=== PATIENT | male | born 1965 | race American Indian/Alaskan Native ===

== ENCOUNTER 2021-04-25 06:27 | Emergency (ER) | payer SELFPAY ==
[2021-04-25 07:31] LABS: CORONAVIRUS COVID-19 NAA NEGATIVE (NEGATIVE)
[2021-04-25 07:33] LABS: ANION GAP 10.5 mEq/L (7-13); CHLORIDE,CL 101 mmol/L (98-107); SODIUM,NA 139 mmol/L (136-145)
--- NOTE | 2021-04-25 07:53 | EDM.PDOC ---
ED HPI GENERAL MEDICAL PROBLEM - General Chief Complaint: Respiratory Problem Stated Complaint: TROUBLE BREATHING Time Seen by Provider: 04/25/21 07:52 Source of Information: Reports: Patient, RN, RN Notes Reviewed History Limitations: Reports: No Limitations - History of Present Illness INITIAL COMMENTS - FREE TEXT/NARRATIVE: Maikel is a 55 y/o male who presents to the ED via personal vehicle with complaints of shortness of breath with exertion. The patient states his symptoms began about three weeks ago and has maintained in severity over this time. He notes his shortness of breath is alleviated by laying down. Additionally, he notes transient chills and weakness. He denies recent illness, fever, vision changes, dizziness, chest pain/pressure, palpitations, dyspepsia, abdominal pain, nausea, or vomiting. The patient reports he is a usual one pack per day cigarette smoker, however he has only been able to smoke 1/4 pack a day for the past few days; he denies alcohol and recreational drug use. He has taken no medications for his symptoms. Bilateral Knee Pain Score (Numeric/FACES): 9 Social & Family History - Tobacco Use Tobacco Use Status *Q: Current Every Day Tobacco User Years of Tobacco use: 40 Packs/Tins Daily: 1 - Caffeine Use Caffeine Use: Reports: Coffee - Alcohol Use Date of Last Drink: 05/28/04 - Recreational Drug Use Recreational Drug Use: Yes Drug Use in Last 12 Months: Yes Recreational Drug Type: Reports: Methamphetamine Recreational Drug Last Use: 10/2020 ED ROS GENERAL - Review of Systems Review Of Systems: Comprehensive ROS is negative, except as noted in HPI. ED EXAM, GENERAL - Physical Exam Exam: See Below Exam Limited By: No Limitations General Appearance: Alert, No Apparent Distress Eye Exam: Bilateral Eye: EOMI, Normal Inspection, PERRL Ears: Normal External Exam, Normal Canal, Hearing Grossly Normal, Normal TMs Nose: Normal Inspection, Normal Mucosa, No Blood Throat/Mouth: Normal Inspection, Normal Oropharynx, Normal Voice, No Airway Compromise Head: Atraumatic, Normocephalic Neck: Normal Inspection, Supple, Non-Tender, Full Range of Motion. No: Lymphadenopathy (L), Lymphadenopathy (R) Respiratory/Chest: No Respiratory Distress, Lungs Clear, Normal Breath Sounds, No Accessory Muscle Use, Chest Non-Tender Cardiovascular: Normal Peripheral Pulses, Regular Rate, Rhythm, No Edema, No Gallop, No JVD, No Murmur, No Rub Peripheral Pulses: 2+: Radial (L), Radial (R) GI/Abdominal: Normal Bowel Sounds, Soft, Non-Tender, No Distention, No Abnormal Bruit, No Mass, Pelvis Stable (Male) Exam: Deferred Rectal (Males) Exam: Deferred Back Exam: Normal Inspection, Full Range of Motion Extremities: Normal Inspection, Normal Range of Motion, Non-Tender, No Pedal Edema, Normal Capillary Refill Neurological: Alert, Oriented, CN II-XII Intact, Normal Cognition, Normal Gait, No Motor/Sensory Deficits Psychiatric: Normal Affect, Normal Mood Skin Exam: Warm, Dry, Intact, Normal Color, No Rash. No: Cyanosis, Jaundice, Mottled, Pallor #1 Interpretation EKG Date: 04/25/21 Time: 06:40 Rhythm: NSR Rate (Beats/Min): 70 [place]: Normal P-Wave: Present QRS: Normal ST-T: Normal QT: Normal NV/PQ Interval: 0.172 Comparison: NA - No Prior EKG EKG Interpretation Comments: NSR; q-wave in III and aVF; No evidence of acute myocardial ischemia Course - Vital Signs Last Recorded V/S: Last Vital Signs Temp 97 F 04/25/21 06:33 Pulse 77 04/25/21 06:33 Resp 18 04/25/21 06:33 BP 130/78 04/25/21 06:33 Pulse Ox 94 L 04/25/21 06:33 - Orders/Labs/Meds Labs: Laboratory Tests 04/25/21 04/25/21 04/25/21 Range/Units 06:49 07:04 07:04 WBC 7.2 (5.0-10.0) 10^3/uL RBC 5.14 (4.6-6.2) 10^6/uL Hgb 15.4 (14.0-18.0) g/dL Hct 45.2 (40.0-54.0) % MCV 87.9 (80-100) fL MCH 30.0 (27.0-34.0) pg MCHC 34.1 (33.0-35.0) g/dL Plt Count 175 (150-450) 10^3/uL Neut % (Auto) 49.9 (42.2-75.2) % Lymph % (Auto) 36.0 (20.5-50.1) % [place] % (Auto) 13.4 H (2-8) % Eos % (Auto) 0.4 L (1.0-3.0) % Baso % (Auto) 0.3 (0.0-1.0) % Sodium 139 (136-145) mmol/L Potassium 4.5 (3.5-5.1) mmol/L Chloride 101 (98-107) mmol/L Carbon Dioxide 32 (21-32) mmol/L Anion Gap 10.5 (7-13) mEq/L BUN 24 H (7-18) mg/dL Creatinine 1.01 (0.70-1.30) mg/dL Est Cr Clr Drug Dosing 91.77 mL/min Estimated GFR (MDRD) > 60 BUN/Creatinine Ratio 23.8 (No establ ref range) Glucose 90 (70-99) mg/dL Lactic Acid (0.4-2.0) mmol/L Calcium 8.7 (8.5-10.1) mg/dL Magnesium (1.8-2.4) mg/dL Total Bilirubin 0.7 (0.2-1.0) mg/dL AST 30 (15-37) U/L ALT 28 (16-63) U/L Alkaline Phosphatase 48 (46-116) U/L Troponin I High Sens 5 (<=76) pg/mL C-Reactive Protein (0.0-0.9) mg/dL B-Natriuretic Peptide (0-100) pg/ml Total Protein 7.2 (6.4-8.2) g/dL Albumin 3.9 (3.4-5.0) g/dL Globulin 3.3 Albumin/Globulin Ratio 1.2 Influenza Type A RNA Negative (NEGATIVE) Influenza Type B RNA Negative (NEGATIVE) SARS-CoV-2 RNA (JAMES) Negative (NEGATIVE) 04/25/21 04/25/21 Range/Units 07:04 07:45 WBC (5.0-10.0) 10^3/uL RBC (4.6-6.2) 10^6/uL Hgb (14.0-18.0) g/dL Hct (40.0-54.0) % MCV (80-100) fL MCH (27.0-34.0) pg MCHC (33.0-35.0) g/dL Plt Count (150-450) 10^3/uL Neut % (Auto) (42.2-75.2) % Lymph % (Auto) (20.5-50.1) % Baldwin % (Auto) (2-8) % Eos % (Auto) (1.0-3.0) % Baso % (Auto) (0.0-1.0) % Sodium (136-145) mmol/L Potassium (3.5-5.1) mmol/L Chloride (98-107) mmol/L Carbon Dioxide (21-32) mmol/L Anion Gap (7-13) mEq/L BUN (7-18) mg/dL Creatinine (0.70-1.30) mg/dL Est Cr Clr Drug Dosing mL/min Estimated GFR (MDRD) BUN/Creatinine Ratio (No establ ref range) Glucose (70-99) mg/dL Lactic Acid 0.7 (0.4-2.0) mmol/L Calcium (8.5-10.1) mg/dL Magnesium 2.1 (1.8-2.4) mg/dL Total Bilirubin (0.2-1.0) mg/dL AST (15-37) U/L ALT (16-63) U/L Alkaline Phosphatase (46-116) U/L Troponin I High Sens (<=76) pg/mL C-Reactive Protein < 0.2 (0.0-0.9) mg/dL B-Natriuretic Peptide 9 (0-100) pg/ml Total Protein (6.4-8.2) g/dL Albumin (3.4-5.0) g/dL Globulin Albumin/Globulin Ratio Influenza Type A RNA (NEGATIVE) Influenza Type B RNA (NEGATIVE) SARS-CoV-2 RNA (JAMES) (NEGATIVE) - Radiology Interpretation Free Text/Narrative:: [facility] Final Radiology Report Call: [phone] assistance Online chat: [email or web address] Name: MAIKEL KEITA Age: 55Years M Date: 04/25/2021 SSN: -- : [id number] Study: CR CHEST 1V FRONTAL Requesting Physician: Lorrie Crews Images: 1 Addl Studies: Provided Clinical History: Shortness of breath; Decreased breath sounds Contrast: Contrast Medium: Contrast Amount: Contrast Method: CONFIDENTIALITY STATEMENT This report is intended only for use by the referring physician, and only in accordance with law. If you received this in error, call [phone]. Page 1 of 1 PROCEDURE INFORMATION: Exam: XR Chest Exam date and time: 04/25/2021 8:15 AM Age: 55 years old Clinical indication: Shortness of breath; Additional info: Shortness of breath; Decreased breath sounds TECHNIQUE: Imaging protocol: XR of the chest. Views: 1 view. COMPARISON: No relevant prior studies available. FINDINGS: Lungs: Unremarkable. No consolidation. Pleural spaces: Unremarkable. No pleural effusion. No pneumothorax. Heart/Mediastinum: Unremarkable. No cardiomegaly. Bones/joints: There is a chronic right clavicular fracture. Soft tissues: Small irregular metallic foreign bodies over the left axilla are likely posttraumatic. IMPRESSION: No evidence for acute pulmonary disease. Thank you for allowing us to participate in the care of your patient. Dictated and Authenticated by: Jan Wilson MD 04/25/2021 8:23 AM Central Time ([place] & [place]) - Re-Assessments/Exams Free Text/Narrative Re-Assessment/Exam: 04/25/21 Findings of examination, lab work, and imaging reviewed with patient. Supportive cares discussed. Patient instructed to continue with previously scheduled follow up with primary care provider. Red flag signs and symptoms which would warrant immediate reevaluation reviewed. Patient verbalized understanding and agreement with the plan of care. Departure - Departure Time of Disposition: 08:37 Disposition: Home, Self-Care 01 Condition: Good Clinical Impression: Shortness of breath on exertion, Tobacco smoker, 1 pack of cigarettes or less per day - Discharge Information *PRESCRIPTION DRUG MONITORING PROGRAM REVIEWED*: Not Applicable *COPY OF PRESCRIPTION DRUG MONITORING REPORT IN PATIENT ANKITA: Not Applicable Instructions: Shortness of Breath, Adult, Steps to Quit Smoking Forms: ED Department Discharge Additional Instructions: 1.) Continue with your previously scheduled appointment with your primary care provider. 2.) Continue to reduce your cigarette use. 3.) You may take your as-needed antianxiety medication, should you feel an increase in anxiety. 4.) Return to the emergency department with any chest pain/pressure, chest palpitations, or worsening shortness of breath. Sepsis Event Note (ED) - Evaluation Sepsis Screening Result: No Definite Risk
--- NOTE | 2021-04-25 08:23 | CR ---
PROCEDURE INFORMATION: Exam: XR Chest Exam date and time: 04/25/2021 8:15 AM Age: 55 years old Clinical indication: Shortness of breath; Additional info: Shortness of breath; Decreased breath sounds TECHNIQUE: Imaging protocol: XR of the chest. Views: 1 view. COMPARISON: No relevant prior studies available. FINDINGS: Lungs: Unremarkable. No consolidation. Pleural spaces: Unremarkable. No pleural effusion. No pneumothorax. Heart/Mediastinum: Unremarkable. No cardiomegaly. Bones/joints: There is a chronic right clavicular fracture. Soft tissues: Small irregular metallic foreign bodies over the left axilla are likely posttraumatic. IMPRESSION: No evidence for acute pulmonary disease.
== END 2021-04-25 09:04 | disposition home or self-care (01) ==
LOC: DL.ED 06:27
DX: R06.02 Shortness of breath (principal); F17.210 Nicotine dependence, cigarettes, uncomplicated; Z20.822 Contact with and (suspected) exposure to COVID-19
CPT/HCPCS: 0240U; 36415; 71045; 80053; 83605; 83735; 83880; 84484; 85025; 86140; 87040; 99285